=== PATIENT | male | born 2000 | race African-American/Black ===

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

== ENCOUNTER 2018-09-14 10:26 | Emergency (ER) | payer OTHER ==
[~2018-09-14] VITALS: Ht 172.7 cm; Wt 68.2 kg
[~2018-09-14 10:26] MED LIST changes: +KEFLEX500 MG PO
[2018-09-14] MEDS ORDERED: CEPHALEXIN500 M1 PO ×2 (12:17→12:58)
[2018-09-14 13:24] VITALS: BP 105/50
== END 2018-09-14 13:24 | disposition home or self-care (01) ==
LOC: ED 10:26
DX: S51.811A Laceration without foreign body of right forearm, initial encounter (principal); S01.81XA Laceration without foreign body of other part of head, initial encounter; S10.91XA Abrasion of unspecified part of neck, initial encounter; Y00.XXXA Assault by blunt object, initial encounter